=== PATIENT | female | born 1950 | race Caucasian/White ===

== ENCOUNTER 2016-11-13 06:24 | Inpatient (IN) | payer MEDICARE, OTHER ==
[~2016-11-13] VITALS: Ht 160 cm; Wt 71.2 kg
[~2016-11-13 06:24] MED LIST: ACET650S21 PO; ASCO500C2 PO; B12 PO; BIOT25004 PO; CHOL1LIQ PO; CHONDROTIN PO; CYAN1TAB29 PO; DONE10TA30 PO; EYE15DRO EACHEYE; FEXO1TAB29 PO; FRESH KOTE EACHEYE; GABA300C PO; GLUCOSAMINE PO; HYDR12.58 PO; IBUP200C8 PO; LACT1CAP35 PO; LEVO1CAP3 PO; LEVO50TA PO; LISI-170 PO; MAGN71.5 PO; METF500T4 PO; METFORMIN PO; METH1500 PO; METH5TAB4 PO; MULT-658 PO; PROBIOTIC PO; SLO MAG PO; SODI15DR6 EACHEYE; TRAM-28 PO; VENL37.52 PO; VITA80004 PO; [UNRECOGNIZED DRUG - CODE] EACHEYE; [UNRECOGNIZED DRUG - CODE] PO; [UNRECOGNIZED DRUG - OTHER] TP
[2016-11-13] MEDS ORDERED: SODIUM CHLORIDE 0.9% 50 ML ONE (06:35)
[2016-11-13] MEDS ORDERED: ROPIvacaine/PF 0.2%, 20 ML ONE (06:35)
[2016-11-13] MEDS ORDERED: KETOROLAC 60 MG/2 ML ONE (06:35)
[2016-11-13] MEDS ORDERED: TRANEXAMIC ACID 100 MG/ML, 10ML ONE (06:35)
[2016-11-13] MEDS ORDERED: FENTANYL PF 250 MCG/5ML ONE (06:35)
[2016-11-13] MEDS ORDERED: VANCOMYCIN 1,000 MG ONE (06:35)
[2016-11-13] MEDS ORDERED: MIDAZOLAM 1 MG/ML, 2ML ONE (06:35)
[2016-11-13] MEDS ORDERED: EPINEPHRINE 1 MG/ML, 1ML ONE (06:35)
[2016-11-13 06:41] VITALS: BP 158/87
[2016-11-13] MEDS ORDERED: LACTATED RINGERS 1,000 ML IV SCH (06:41)
[2016-11-13] MEDS ORDERED: CEFAZOLIN 1,000 MG ONE (07:08)
[2016-11-13] MEDS ORDERED: PROPOFOL 10 MG/ML, 20ML ONE (07:08)
[2016-11-13] MEDS ORDERED: LABETALOL 5MG/ML, 20ML IV PRN (08:30)
[2016-11-13] MEDS ORDERED: MIDAZOLAM 1 MG/ML, 2ML IV PRN (08:30)
[2016-11-13] MEDS ORDERED: hydrALAzine 20 MG/ML, 1ML IV PRN (08:30)
[2016-11-13] MEDS ORDERED: OXYcodone 5 MG/5 ML ORAL.SOL UDC PO PRN (08:30)
[2016-11-13] MEDS ORDERED: ALBUTEROL SULFATE 2.5 MG/3 ML NPPB PRN (08:30)
[2016-11-13] MEDS ORDERED: ACETAMINOPHEN 325 MG TABLET PO PRN (08:30)
[2016-11-13] MEDS ORDERED: ONDANSETRON 2MG/ML, 2ML IVPush PRN (08:30)
[2016-11-13] MEDS ORDERED: METOPROLOL 1 MG/ML, 5ML IV PRN (08:30)
[2016-11-13] MEDS ORDERED: EPHEDRINE 50 MG/ML, 1ML IVPush PRN (08:30)
[2016-11-13] MEDS ORDERED: PROMETHAZINE 25 MG/ML, 1ML IV PRN (08:30)
[2016-11-13] MEDS ORDERED: SENNA/DOCUSATE TABLET PO PRN (09:00)
[2016-11-13] MEDS: SCOPOLAMINE PATCH, 1.5MG PATCH.TD72 TD SCH (09:00)
[2016-11-13] MEDS ORDERED: HYDROmorphone 1 MG/ML, 1ML IV PRN (09:00)
[2016-11-13] MEDS: MULTIVITAMINS/MINERALS TABLET PO SCH (09:00)
[2016-11-13] MEDS ORDERED: ONDANSETRON 4 MG TABLET PO PRN (09:00)
[2016-11-13] MEDS ORDERED: OXYcodone IR 5MG TABLET PO SCH (09:00)
[2016-11-13] MEDS ORDERED: HYDROcodone/APAP 10/325 MG TABLET PO PRN (09:00)
[2016-11-13] MEDS ORDERED: MAGNESIUM HYDROXIDE 8%, 30ML UDC PO PRN (09:00)
[2016-11-13] MEDS ORDERED: ONDANSETRON 2MG/ML, 2ML IV PRN (09:00)
[2016-11-13] MEDS ORDERED: PROMETHAZINE 25 MG/ML, 1ML IM PRN (09:00)
[2016-11-13] MEDS: DOCUSATE 100 MG CAPSULE PO SCH ×2 (09:00→21:17)
[2016-11-13] MEDS ORDERED: ALUMINUM/MAG/SIMETHICONE 30 ML UDC PO PRN (09:00)
[2016-11-13] MEDS ORDERED: BISACODYL 10 MG SUPP PR PRN (09:00)
[2016-11-13] MEDS: ACETAMINOPHEN 650 MG/20.3 ML UDC PO SCH ×4 (09:00→21:18)
[2016-11-13] MEDS ORDERED: PROMETHAZINE 12.5 MG SUPP PR PRN (09:00)
[2016-11-13] MEDS ORDERED: DIPHENHYDRAMINE 50 MG CAPSULE PO PRN (09:00)
[2016-11-13] MEDS ORDERED: ZOLPIDEM 5MG TABLET PO PRN (09:00)
[2016-11-13] MEDS ORDERED: DIAZEPAM 5 MG TABLET PO PRN (09:00)
[2016-11-13] MEDS ORDERED: ACETAMINOPHEN 650 MG/20.3 ML UDC ONE (09:04)
[2016-11-13] MEDS ORDERED: OXYcodone 5 MG/5 ML ORAL.SOL UDC ONE (09:05)
[2016-11-13] MEDS ORDERED: HYDROmorphone 2 MG/ML, 1ML ONE (09:05)
[2016-11-13] MEDS: HYDROmorphone 1 MG/ML, 1ML IV PRN ×4 (09:13→09:42)
[2016-11-13] MEDS ORDERED: TRANEXAMIC ACID 1,000 MG in SODIUM CHLORIDE 0.9% 100 ML IVPB ONE (09:15)
[2016-11-13] MEDS: TAMSULOSIN 0.4 MG CAP.ER.24H PO SCH (09:15)
[2016-11-13] MEDS ORDERED: FENTANYL PF 100 MCG/2ML ONE (09:42)
[2016-11-13] MEDS: FENTANYL PF 100 MCG/2ML IV PRN ×2 (09:45→09:58)
[2016-11-13 10:43] VITALS: BP 160/76
[2016-11-13] MEDS: INSULIN REGULAR 100 UNITS/ML, 3ML VIAL SQ-INSULIN SCH ×3 (11:00→21:00)
[2016-11-13] MEDS: VENLAFAXINE XR 37.5MG CAP.ER.24H PO SCH (11:00)
[2016-11-13] MEDS: SODIUM CHLORIDE 0.9% 1,000 ML IV SCH ×3 (12:59→23:32)
[2016-11-13] MEDS: OXYcodone IR 5MG TABLET PO PRN ×2 (12:59→21:19)
[2016-11-13 14:50] VITALS: BP 109/79
[2016-11-13] MEDS: CEFAZOLIN PMX 2GM/50ML 50 ML IVPB SCH ×2 (14:56→23:32)
[2016-11-13] MEDS: GABAPENTIN 300 MG CAPSULE PO SCH ×2 (14:57→21:00)
[2016-11-13 20:21] VITALS: BP 146/67
[2016-11-13] MEDS: OCULAR LUBRICANT OPHTH OINT 3.5 GM OP SCH (21:00)
[2016-11-13] MEDS: DONEPEZIL 10 MG TABLET PO SCH (21:17)
[2016-11-13 23:56] VITALS: BP 147/65
[2016-11-14] MEDS: ACETAMINOPHEN 650 MG/20.3 ML UDC PO SCH ×6 (01:00→21:51)
[2016-11-14] MEDS: OXYcodone IR 5MG TABLET PO PRN ×4 (01:09→18:30)
[2016-11-14 04:15] VITALS: BP 144/78
[2016-11-14] MEDS ORDERED: DEXAMETHASONE 4 MG/ML, 1ML IVPush SCH (06:00)
[2016-11-14] MEDS: INSULIN REGULAR 100 UNITS/ML, 3ML VIAL SQ-INSULIN SCH ×4 (07:22→20:29)
[2016-11-14 07:30] VITALS: BP 135/63
[2016-11-14] MEDS: SODIUM CHLORIDE 0.9% 1,000 ML IV SCH ×3 (07:32→17:27)
[2016-11-14] MEDS: HYDROCHLOROTHIAZIDE 12.5 MG CAPSULE PO SCH (09:14)
[2016-11-14] MEDS: KETOROLAC 30 MG/1 ML IV SCH ×2 (09:14→17:02)
[2016-11-14] MEDS: GABAPENTIN 300 MG CAPSULE PO SCH ×3 (09:14→20:31)
[2016-11-14] MEDS: LISINOPRIL 20 MG TABLET PO SCH (09:14)
[2016-11-14] MEDS: MULTIVITAMINS/MINERALS TABLET PO SCH (09:14)
[2016-11-14] MEDS: metFORMIN XR 500 MG TAB.ER.24H PO SCH (09:15)
[2016-11-14] MEDS: TAMSULOSIN 0.4 MG CAP.ER.24H PO SCH (09:15)
[2016-11-14] MEDS: DOCUSATE 100 MG CAPSULE PO SCH ×2 (09:15→20:30)
[2016-11-14] MEDS: ASPIRIN 325 MG TABLET PO SCH (09:15)
[2016-11-14 14:57] VITALS: BP 120/54
[2016-11-14] MEDS: OCULAR LUBRICANT OPHTH OINT 3.5 GM OP SCH (20:24)
[2016-11-14] MEDS: DONEPEZIL 10 MG TABLET PO SCH (20:30)
[2016-11-15] MEDS: OXYcodone IR 5MG TABLET PO PRN ×6 (00:12→22:09)
[2016-11-15] MEDS: SODIUM CHLORIDE 0.9% 1,000 ML IV SCH ×4 (00:50→19:05)
[2016-11-15] MEDS: KETOROLAC 30 MG/1 ML IV SCH ×3 (01:14→18:08)
[2016-11-15 02:29] VITALS: BP 95/44
[2016-11-15] MEDS: ACETAMINOPHEN 650 MG/20.3 ML UDC PO SCH ×6 (02:57→22:05)
[2016-11-15] MEDS: INSULIN REGULAR 100 UNITS/ML, 3ML VIAL SQ-INSULIN SCH ×4 (07:07→20:24)
[2016-11-15 07:53] VITALS: BP 103/57
[2016-11-15] MEDS: metFORMIN XR 500 MG TAB.ER.24H PO SCH (08:58)
[2016-11-15] MEDS: DOCUSATE 100 MG CAPSULE PO SCH ×2 (10:06→20:25)
[2016-11-15] MEDS: GABAPENTIN 300 MG CAPSULE PO SCH ×3 (10:07→20:25)
[2016-11-15] MEDS: HYDROCHLOROTHIAZIDE 12.5 MG CAPSULE PO SCH (10:07)
[2016-11-15] MEDS: TAMSULOSIN 0.4 MG CAP.ER.24H PO SCH (10:07)
[2016-11-15] MEDS: MULTIVITAMINS/MINERALS TABLET PO SCH (10:07)
[2016-11-15] MEDS: LISINOPRIL 20 MG TABLET PO SCH (10:07)
[2016-11-15] MEDS: ASPIRIN 325 MG TABLET PO SCH (10:07)
[2016-11-15] MEDS ORDERED: METH5TAB4 PO (11:08)
[2016-11-15 12:23] VITALS: BP 118/58
[2016-11-15 20:02] VITALS: BP 148/48
[2016-11-15] MEDS: OCULAR LUBRICANT OPHTH OINT 3.5 GM OP SCH (20:24)
[2016-11-15] MEDS: DONEPEZIL 10 MG TABLET PO SCH (20:25)
[2016-11-16 00:19] VITALS: BP 107/50
[2016-11-16] MEDS: SODIUM CHLORIDE 0.9% 1,000 ML IV SCH (02:46)
[2016-11-16] MEDS: ACETAMINOPHEN 650 MG/20.3 ML UDC PO SCH ×3 (02:59→12:46)
[2016-11-16] MEDS: OXYcodone IR 5MG TABLET PO PRN ×2 (06:10→12:46)
[2016-11-16 07:05] VITALS: BP 127/71
[2016-11-16] MEDS: INSULIN REGULAR 100 UNITS/ML, 3ML VIAL SQ-INSULIN SCH (07:45)
[2016-11-16] MEDS: metFORMIN XR 500 MG TAB.ER.24H PO SCH (08:13)
[2016-11-16] MEDS: DOCUSATE 100 MG CAPSULE PO SCH (08:13)
[2016-11-16] MEDS: ASPIRIN 325 MG TABLET PO SCH (08:13)
[2016-11-16] MEDS: HYDROCHLOROTHIAZIDE 12.5 MG CAPSULE PO SCH (08:14)
[2016-11-16] MEDS: LISINOPRIL 20 MG TABLET PO SCH (08:14)
[2016-11-16] MEDS: TAMSULOSIN 0.4 MG CAP.ER.24H PO SCH (08:14)
[2016-11-16] MEDS: GABAPENTIN 300 MG CAPSULE PO SCH (08:15)
[2016-11-16] MEDS: MULTIVITAMINS/MINERALS TABLET PO SCH (08:15)
[2016-11-16] MEDS: SCOPOLAMINE PATCH, 1.5MG PATCH.TD72 TD SCH (08:15)
[2016-11-16] MEDS: VENLAFAXINE XR 37.5MG CAP.ER.24H PO SCH (12:46)
[2016-11-16 13:15] VITALS: BP 104/69
[2016-11-16] MEDS ORDERED: OXYC5CAP4 PO (14:21)
[2016-11-16] MEDS ORDERED: DIAZ5TAB PO (14:21)
== END 2016-11-16 14:45 | disposition home or self-care (01) | DRG 470 ==
LOC: ORIP 06:24 → 4NOR 10:26 → DCLOUNGE 11-16 14:10
PROVIDERS: ADMIT Orthopaedic Surgery; ATTEND Orthopaedic Surgery
PROC: 0SRB02Z Replacement of Left Hip Joint with Metal on Polyethylene Synthetic Substitute, Open Approach (ICD-10-PCS; principal; 2016-11-13 07:30)
DX: M16.12 Unilateral primary osteoarthritis, left hip (principal); I10 Essential (primary) hypertension; E11.9 Type 2 diabetes mellitus without complications; Z88.2 Allergy status to sulfonamides; Z88.8 Allergy status to other drugs, medicaments and biological substances; Z85.3 Personal history of malignant neoplasm of breast
CPT/HCPCS: 36415; 72170; 82962; 85014; 85018; 86850; 86900; C1713; J0171; J0690; J1100; J1170; J1815; J1885; J2250; J2405; J2704; J2795; J3010; J3370; C1776; J7030; J7120

== ENCOUNTER → 2018-09-20 | Outpatient (CLI) | payer MEDICARE, OTHER ==
[~2018-09-20] MED LIST changes: -BIOT25004 PO; +BIOT25005 PO; +DIAZ5TAB PO; -DONE10TA30 PO; +DONE10TA56 PO; -HYDR12.58 PO; +HYDROCHLOROTH12.5 MG PO; +METF500T17 PO; -METF500T4 PO; +OXYC5CAP2 PO; +REGADENOSON 0.4 MG/5 ML SYRINGE ONE; -TRAM-28 PO; +TRAM-47 PO
== END | disposition home or self-care (01) ==
LOC: CFH 08:50
PROVIDERS: ATTEND Internal Medicine Cardiovascular Disease
DX: Z13.6 Encounter for screening for cardiovascular disorders (principal)
CPT/HCPCS: 78452; 93017; A9502; J2785

== ENCOUNTER → 2019-08-29 | Outpatient (CLI) | payer MEDICARE, OTHER ==
[~2019-08-29] MED LIST changes: -REGADENOSON 0.4 MG/5 ML SYRINGE ONE
== END | disposition home or self-care (01) ==
LOC: CFH 15:23
PROVIDERS: ATTEND Internal Medicine Cardiovascular Disease
DX: I08.2 Rheumatic disorders of both aortic and tricuspid valves (principal); I11.9 Hypertensive heart disease without heart failure; E11.9 Type 2 diabetes mellitus without complications; Z85.3 Personal history of malignant neoplasm of breast
CPT/HCPCS: 93306